=== PATIENT | male | born 1980 | race Caucasian/White ===

== ENCOUNTER 2020-07-22 10:19 | Emergency (ER) | payer OTHER, SELFPAY ==
[2020-07-22] VITALS (27 sets, daily range): BP systolic 115–165; BP diastolic 83–101; PULSE 59–79; RESP 11–18; TEMP 36.8; O2SAT 94–100
--- NOTE | ~2020-07-22 | CT_ITS ---
EXAMINATION: CT abdomen pelvis w con EXAM DATE: 07/22/2020 11:10 INDICATION: Epigastric pain. TECHNIQUE: Spiral CT of the abdomen and pelvis was performed following intravenous injection of 100 m L Omnipaque 350. Axial, coronal and sagittal images were reviewed. The dose-length product (DLP) fo r this examination was 672.72 mGy-cm. The exposure was tailored according to patient size (auto mA e xposure control), and iterative reconstruction (ASIR) was used as additional dose reduction technique . There is no prior study for comparison. FINDINGS: There is hepatic steatosis without suspicious focal lesion identified. Spleen, adrenal glan ds, pancreas are unremarkable. There are gallstones within an otherwise unremarkable gallbladder. N o evidence of obstructive biliary disease. Portal and splenic veins are patent. Kidneys enhance sym metrically. There is no hydronephrosis. The prostate is unremarkable. The bladder is unremarkable . There is no retroperitoneal or pelvic lymphadenopathy. There are surgical changes consistent with appendectomy. The stomach and small bowel are unremarkab le. There is expected amount of colonic stool. No free intraperitoneal gas. The heart is normal in size. There are no pericardial or pleural effusions. The lung bases are unremarkable. There are no osteoblastic or osteolytic lesions identified. IMPRESSION: 1. No acute intra-abdominal findings. 2. Hepatic steatosis. 3. Cholelithiasis. Reviewed, dictated and finalized at location B.
--- NOTE | ~2020-07-22 | XR_ITS ---
EXAMINATION: XR chest 2V EXAM DATE: 07/22/2020 11:15 INDICATION: Mid chest pain. Epigastric pain. TECHNIQUE: Frontal and lateral projections of the chest obtained and reviewed. There is no prior caitlyn dy for comparison. FINDINGS: The lungs are clear. There are no pleural effusions. The cardiomediastinal silhouette is within normal limits. There is no pneumothorax suspected. The bones and soft tissues are unremarkab le. IMPRESSION: No acute cardiopulmonary findings. Reviewed, dictated and finalized at location B.
--- NOTE | 2020-07-22 10:30 | ECG_ITS ---
Measurements Intervals [place] Rate: 68 P: 46 ND: 188 QRS: 6 QRSD: 92 T: 29 QT: 395 QTc: 422 Interpretive Statements SINUS RHYTHM CANNOT RULE OUT SEPTAL INFARCT, AGE INDETERMINATE ABNORMAL ECG Electronically Signed On 07-22-2020 20:12:45 CDT by Rajan Edgar D.O.
--- NOTE | 2020-07-22 10:30 | PC.NURSE ---
Dr. Davila at bedside for pt assessment.
--- NOTE | 2020-07-22 10:36 | ED.ABDPAIN ---
HPI - Abdominal Pain General Chief Complaint: Chest Pain Stated Complaint: chest pains Time Seen by Provider: 07/22/20 10:24 Source: patient Mode of arrival: ambulatory Limitations: no limitations History of Present Illness HPI narrative: Patient is a 39-year-old male complaining of epigastric pain described as burning 4 out of 10 nonradiating was 9 out of 10 prior to arrival. Patient states he has a history of heartburn and on pantoprazole for it. Patient denies any shortness of breath nausea vomiting or diaphoresis. Related Data Allergies Allergy/AdvReac Type Severity Reaction Status Date / Time acetaminophen AdvReac Unknown Nausea and Verified 07/22/20 10:34 Vomiting codeine AdvReac Unknown Nausea and Verified 07/22/20 10:34 Vomiting prednisone AdvReac Unknown Unknown Verified 07/22/20 10:34 Review of Systems Review of Systems: All systems reviewed & are unremarkable except as noted in HPI and below Constitutional: Constitutional: Denies body ache(s), Denies chills, Denies excessive sweating, Denies fatigue, Denies fever(s), Denies headache(s), Denies lethargy, Denies malaise, Denies weakness and Denies weight loss Eyes: Eyes: Denies blurry vision, Denies change in vision and Denies loss of vision ENT: Denies dizziness, Denies ear discharge, Denies headache(s), Denies lip swelling, Denies epistaxis, Denies nasal congestion, Denies neck pain, Denies throat swelling and Denies tongue swelling Cardiovascular: Cardiovascular: Denies chest pain, Denies chest pain at rest, Denies chest pain with activity, Denies diaphoresis, Denies rapid heart rate, Denies edema, Denies irregular heart rhythm, Denies lightheadedness, Denies palpitations, Denies dyspnea and Denies dyspnea on exertion Respiratory: Respiratory: Denies chest congestion, Denies cough, Denies hemoptysis, Denies dyspnea and Denies dyspnea on exertion Gastrointestinal: Gastrointestinal: Denies melena, Denies hematochezia, Denies diarrhea, Denies nausea, Denies vomiting and Denies hematemesis Musculoskeletal: Musculoskeletal: Denies abnormal gait, Denies deformity, Denies joint swelling, Denies limited range of motion, Denies neck pain and Denies numbness Neurologic: Denies Abnormal speech present, Denies abnormal gait, Denies confusion, Denies dizziness, Denies headache(s), Denies focal weakness, Denies loss of vision, Denies numbness, Denies Other visual disturbances, Denies Sensory deficit (Neuro) and Denies weakness Psychiatric: Psychiatric: Denies confusion, Denies depression, Denies auditory hallucinations, Denies homicidal ideation and Denies suicidal ideation Endocrine: Endocrine: Denies cold intolerance, Denies excessive sweating, Denies fatigue, Denies heat intolerance and Denies palpitations Hematologic/Lymphatic: Hematologic/Lymphatic: Denies easy bleeding and Denies easy bruising Allergic/Immunologic: Allergic/Immunologic: Denies lip swelling, Denies throat swelling and Denies tongue swelling PMFSH Family History Family History (Updated 11/18/17 @ 15:59 by DOCTOR UNKNOWN) Grandparent Hypertension Carcinoma of colon Mother Patient's mother is in good health Hypertension Family history of malignant neoplasm of ovary Father Patient's father is in good health Social History Social History Smoking status: Never smoker Alcohol intake: current Exam Const: General: cooperative, healthy appearing, comfortable, no acute distress, well developed, alert and awake; No confusion Orientation/consciousness: oriented to person, oriented to place, oriented to time, patient oriented x3 and No confusion Limitations: no limitations HENMT: Head: normal to inspection, normocephalic and atraumatic Ears: hearing grossly normal bilaterally, TM normal on the right and TM normal on the left General nose exam: Normal external nose present, Normal nares present and No nasal discharge present Face and sinus: normal facial exam Mouth: Yes Normal oral
[2020-07-22 10:45] LABS: Basophils Absolute Auto 0.1 K/mm3 (0.0-0.1); Basophils Percent Auto 0.8 % (0.2-1.2); Eosinophils Absolute Auto 0.1 K/mm3 (0-0.3); Eosinophils Percent Auto 1.6 % (0-4.4); Hematocrit 47.5 % (42.0-52.0); Hemoglobin 16.8 g/dL (14.0-18.0); Immature Granulocyte Absolute 0.03 K/mm3 (0.00-0.031); Immature Granulocyte Percent A 0.4 % (0-0.5); Lymphocytes Absolute Auto 2.53 K/mm3 (0.9-3.2); Lymphocytes Percent Auto 34.4 % (18.3-44.2); Mean Corpuscular HGB Conc 35.4 g/dl (32-36); Mean Corpuscular Hemoglobin 32.2 pg (26-34); Mean Platelet Volume 10.2 fl (7.4-10.4); Monocytes Absolute Auto 0.5 K/mm3 (0.1-0.6); Monocytes Percent Auto 6.3 % (2.6-8.5); Neutrophils Absolute Auto 4.2 K/mm3 (1.3-6.7); Neutrophils Percent Auto 56.5 % (45.5-73.1); Platelet Count Result 221 k/mm3 (150-375); Red Blood Count 5.22 M/mm3 (4.6-6.20); Red Cell Distribution Width 11.6 % (11.5-14.5); White Blood Count 7.4 K/mm3 (4.5-10.0)
[2020-07-22] MEDS: ASPIRIN 81 MG CHEWABLE TABLET 324 MG PO (10:52)
[2020-07-22] MEDS: FAMOTIDINE 20 MG TABLET 40 MG PO (10:53)
[2020-07-22] MEDS: BELLADONNA ALK/PHENOB ELIX 10 ML, MAG HYDROX/ALUMINUM HYD/SIMETH 30 ML, LIDOCAINE HCL 2... PO (10:54)
[2020-07-22 10:56] LABS: Partial Thromboplastin Time 27.4 SECONDS (22.3-36.8); Prothrombin Time 12.8 Seconds (11.1-14.7)
--- NOTE | 2020-07-22 10:56 | PC.NURSE ---
Pt to CT.
[2020-07-22 11:05] LABS: Estimated CRCL calculation 91 ml/min; Estimated Glomerular Filt Rate > 60
[2020-07-22] MEDS: SODIUM CHLORIDE 0.9% IV 1,000 ML 999 ML IV CONT (11:22)
[2020-07-22 11:51] LABS: Anion Gap 7 mmol/L (8-16); Blood Urea Nitrogen 10 mg/dL (9-20); Calcium 8.9 mg/dL (8.4-10.2); Carbon Dioxide 28 mmol/L (22-30); Chloride 100 mmol/L (98-107); Estimated CRCL calculation 100 ml/min; Estimated Glomerular Filt Rate > 60; Glucose 105 mg/dL (75-110); Lipase 34 U/L (23-300); Potassium 4.2 mmol/L (3.4-5.0); Sodium 135 mmol/L (137-145)
[2020-07-22 12:02] LABS: Troponin I < 0.012 ng/mL (0.000-0.034)
[2020-07-22 13:55] LABS: Troponin I < 0.012 ng/mL (0.000-0.034)
== END 2020-07-22 15:27 | disposition home or self-care (01) ==
PROVIDERS: Emergency Provider Emergency Medicine; PCP Internal Medicine
DX: K80.20 Calculus of gallbladder without cholecystitis without obstruction (principal); K76.0 Fatty (change of) liver, not elsewhere classified; R94.31 Abnormal electrocardiogram [ECG] [EKG]
CPT/HCPCS: 36415; 71046; 74177; 80048; 83690; 84484; 85025; 85610; 85730; 93005; 96360; 99284; A9270; J7030; Q9967

== ENCOUNTER 2020-10-07 07:30 | Outpatient (CLI) | payer OTHER, SELFPAY ==
--- NOTE | ~2020-10-07 | NM_ITS ---
EXAMINATION: NM hepatobiliary w pharm DATE: 10/07/2020 09:36 INDICATION: Cholelithiasis COMPARISON: None. TECHNIQUE: 5 mCi Tc-99m mebrofenin (Choletec) was administered intravenously. Scintigraphic images o f the abdomen were obtained for one hour. 2 mcg sincalide (Kinevac) was administered by slow intraven ous infusion, and imaging was continued for 30 minutes. Gallbladder ejection fraction was calculated by the technologist. FINDINGS: There is normal clearance of radiotracer from the blood pool. There is homogeneous tracer uptake by t he liver. Activity progresses to the gallbladder and bowel. The gallbladder ejection fraction (GBEF) is 25% (normal 10-90%, but most patient with gallbladder dysfunction have GBEF < 35% which does over lap with the normal range). IMPRESSION: 1. Gallbladder ejection fraction is at the lower range of normal. This could be normal but is also within the range of overlap with gallbladder dysfunction or chronic cholecystitis in the appropriate clinical setting. Reviewed, dictated and finalized at location A. LANCE DESIGNER
== END 2020-10-07 07:31 | disposition home or self-care (01) ==
LOC: ANHIMG 07:40
PROVIDERS: PCP Internal Medicine; Visit Provider Internal Medicine
DX: K80.20 Calculus of gallbladder without cholecystitis without obstruction (principal)
CPT/HCPCS: 78227; A9537; J2805

== ENCOUNTER 2020-10-25 13:31 | Outpatient (CLI) | payer OTHER, SELFPAY ==
[2020-10-25 13:44] LABS: Basophils Percent Auto 0.6 % (0.2-1.2); Eosinophils Absolute Auto 0.1 K/mm3 (0-0.3); Eosinophils Percent Auto 1.3 % (0-4.4); Hematocrit 48.2 % (42.0-52.0); Hemoglobin 16.8 g/dL (14.0-18.0); Immature Granulocyte Absolute 0.04 K/mm3 (0.00-0.031); Immature Granulocyte Percent A 0.6 % (0-0.5); Lymphocytes Absolute Auto 2.18 K/mm3 (0.9-3.2); Mean Corpuscular HGB Conc 34.9 g/dl (32-36); Mean Corpuscular Hemoglobin 31.1 pg (26-34); Mean Corpuscular Volume 89.3 fl (80-100); Mean Platelet Volume 9.4 fl (7.4-10.4); Monocytes Absolute Auto 0.4 K/mm3 (0.1-0.6); Monocytes Percent Auto 6.3 % (2.6-8.5); Neutrophils Absolute Auto 4.2 K/mm3 (1.3-6.7); Neutrophils Percent Auto 60.2 % (45.5-73.1); Platelet Count Result 230 k/mm3 (150-375); Red Cell Distribution Width 11.8 % (11.5-14.5)
[2020-10-25 14:01] LABS: Alanine Aminotransferase 91 U/L (4-50); Albumin Level 4.6 g/dL (3.5-5.1); Alkaline Phosphatase 64 U/L (38-126); Amylase 64 U/L (30-110); Anion Gap 9 mmol/L (8-16); Aspartate Amino Transferase 60 U/L (17-59); Bilirubin,Total 1.7 mg/dL (0.2-1.3); Blood Urea Nitrogen 16 mg/dL (9-20); Calcium 9.4 mg/dL (8.4-10.2); Carbon Dioxide 30 mmol/L (22-30); Chloride 100 mmol/L (98-107); Estimated Glomerular Filt Rate > 60; Glucose 108 mg/dL (75-110); Lipase 56 U/L (23-300); Sodium 139 mmol/L (137-145)
== END 2020-10-25 13:32 | disposition home or self-care (01) ==
LOC: ANHSURGERY 13:33
PROVIDERS: PCP Internal Medicine; Visit Provider Surgery
DX: Z01.818 Encounter for other preprocedural examination (principal); K80.10 Calculus of gallbladder with chronic cholecystitis without obstruction
CPT/HCPCS: 36415; 80053; 82150; 82248; 83690; 85025

== ENCOUNTER 2020-10-28 00:41 | Outpatient (CLI) | payer OTHER, SELFPAY ==
[2020-10-28 18:38] LABS: SARS-CoV-2 RNA PCR Negative
== END 2020-10-28 00:42 | disposition home or self-care (01) ==
LOC: ANHCOVIDDT 00:42
PROVIDERS: PCP Internal Medicine; Visit Provider Surgery
DX: Z01.818 Encounter for other preprocedural examination (principal); Z20.828 Contact with and (suspected) exposure to other viral communicable diseases
CPT/HCPCS: C9803; U0003

== ENCOUNTER 2020-10-31 01:13 | Day surgery (SDC) | payer OTHER, SELFPAY ==
[2020-10-24 14:24] VITALS: BMI 27.8
[2020-10-31] VITALS (7 sets, daily range): BP systolic 89–135; BP diastolic 70–90; PULSE 66–87; RESP 14–16; TEMP 36.3–36.7; O2SAT 94–100; BMI 28.3
--- NOTE | ~2020-10-31 | XR_ITS ---
EXAMINATION: XR cholangiogram surg 1st inj EXAM DATE: 10/31/2020 18:42 INDICATION: Intraoperative cholangiogram. TECHNIQUE: Multiples Cine fluoroscopic images were obtained during injection of the cystic duct duri ng laparoscopic cholecystectomy. Procedure performed by Dr. Miguel Angel Buchanan MD on 10/31/2020 18:4 2. The DAP for this procedure was 0.18 mGym2. Correlation was made with CT abdomen 07/22/2020. FINDINGS: The cystic duct has been injected. There are no intraluminal filling defects within or st rictures of the common bile duct or opacified hepatic ducts. Forward flow of contrast confirmed into the duodenum. IMPRESSION: Unremarkable biliary system. Reviewed, dictated and finalized at location A. Y LABORATORY TECHNICIAN
[2020-10-31] MEDS: ACETAMINOPHEN 500 MG TABLET 1000 MG PO (13:13)
[2020-10-31] MEDS: LACTATED RINGERS 1,000 ML 30 ML IV CONT ×2 (13:14→19:18)
[2020-10-31] MEDS: KETOROLAC 15 MG/ML VIAL (*BKC) IV PUSH (13:14)
--- NOTE | 2020-10-31 14:51 | SUR.PREOP ---
PT NOTIFIED OF APPROX 90 MIN DELAY. OFFERED RECLINER. PT STATES HE IS FINE ON STRETCHER.
--- NOTE | 2020-10-31 15:34 | SUR.PREOP ---
1530; PT MOVED TO [facility] WHILE WAITING FOR SURGERY. REPORT GIVEN TO HELEN EPPERSON RN.
--- NOTE | 2020-10-31 16:10 | SUR.PREOP ---
OR STAFF REPORTED THAT THIS PATIENT'S SURGERY IS DELAYED ABOUT 1-1.5 HOURS. PATIENT NOTIFIED AND DECIDED TO STAY FOR SURGERY TODAY. PATIENT CALLING HIS TO REPORT THE CHANGE.
--- NOTE | 2020-10-31 16:43 | WPDANESEPPF ---
Anes - Initial Pre Proc Eval Procedure: Operation Date: 10/31/20 14:30 Proposed Procedures p Laparoscopic Cholecystectomy with Intra Operative Cholangiograms, Possible Open - Miguel Angel Buchanan MD Date/Time: 10/31/20 16:43 Surgeon: Miguel Angel Buchanan MD Pre Op Diagnosis: chronic cholecystitis with cholelithiasis Patient Data Age: 40 Gender: M Height: 1.85 m Weight: 97.5 kg Last Vital Signs Temp 36.7 C 10/31/20 13:17 Pulse 85 10/31/20 13:17 Resp 16 10/31/20 13:17 BP 128/85 10/31/20 13:17 Pulse Ox 99 10/31/20 13:17 Allergies Allergy/AdvReac Type Severity Reaction Status Date / Time codeine AdvReac Unknown Nausea and Verified 10/31/20 12:58 Vomiting prednisone AdvReac Unknown Gastrointestinal Verified 10/31/20 12:58 Upset Home Medications Medication Instructions Recorded Confirmed Type omeprazole 20 mg capsule,delayed 20 mg PO DAILY #90 cap 07/27/20 10/31/20 Rx release ascorbic acid (vitamin C) 1 g PO DAILY 10/24/20 10/31/20 History Patient hx anesthesia problems: none Family hx anesthesia problems: none PMFSH Past Medical History Medical History (Updated 10/31/20 @ 16:45 by Shashank Smyth MD) Chronic cholecystitis with calculus OSVALDO (generalized anxiety disorder) GERD (gastroesophageal reflux disease) Grannis syndrome Mixed hypertriglyceridemia Overweight (BMI 25.0-29.9) Surgical History Surgical History H/O hand surgery index finger H/O knee surgery History of appendectomy Family History Family History Grandparent Hypertension Carcinoma of colon Mother Patient's mother is in good health Hypertension Family history of malignant neoplasm of ovary Father Patient's father is in good health Social History Social History Smoking status: Never smoker Alcohol intake: current Drinks per week: 5 Substance use: unknown Living arrangements: with family Additional occupation/education comments: [employer] Gender identity (if verbalized by the patient): Male Spiritual care concerns: No Anes - Eval Final PreProcedure Day of Procedure 10/31/20 16:43 Patient weight: overweight Heart: regular rate and rhythm Lungs: clear to auscultation and normal air movement Airway: Mallampati scale class II Neurological: alert and oriented Last oral intake: >/= 8 hours ASA classification: II Emergent: no Anesthetic plan: proceed Anesthesia type and monitoring: general ETT Informed Consent: The patient's anesthetic plan and its attendant risks and benefits were discussed with the patient/family/POA. Questions were solicited and answers provided to the satisfaction of the patient/family/POA.
--- NOTE | 2020-10-31 17:16 | WPDHPUPDATE1 ---
History and Physical Update Update Date/Time: 10/31/20 17:16 History and Physical has been reviewed, including an updated exam of the patient. There are NO changes in the patient's condition. Risks, benefits, and alternatives have been discussed and questions answered. Patient agrees to proceed with procedure.
[2020-10-31] MEDS: ceFAZolin 2 GM/D5W 50 ML 2 GM/50 ML BAG IVPB (17:32)
[2020-10-31] MEDS: BUPIVACAINE HCL 0.5% PF 30 ML VIAL INFILTRATE (18:19)
--- NOTE | 2020-10-31 19:10 | PM.PROC ---
Procedure Note - Detailed Date of procedure: 10/31/20 Pre-op diagnosis: chronic cholecystitis with cholelithiasis Post-op diagnosis: same Procedure performed: Laparoscopic cholecystectomy with intraoperative cholangiogram. Description of procedure: Procedure Details: Patient was seen preoperatively in the holding area and risks, benefits and alternatives confirmed. Patient was taken to the operating room and general anesthesia was induced. A time out was then preformed with the surgery team confirming patient and site of surgery. The abdomen was prepped and draped in the usual sterile fashion. Incision was made just below the umbilicus. Two stay sutures of O- Vicryl were used to elevate the mid-line fascia beneath the umbilicus and a small incision was made under direct vision. The peritoneum was entered. The 12 mm Palma cannula was introduced under direct vision. First under low flow and then under high flow the abdomen was insufflated with carbon dioxide never exceeding a pressure of 14. Three 5 mm trocars were then introduced under direct vision. The following trocars were introduced under direct vision: a 5 mm in the epigastrium and two 5 mm trocars along the right costal margin. The gall bladder was grasped and the cystic duct and artery were dissected free and clipped with an 5 mm endo-clip founder ceo & president. There were 3 somewhat tubular structures in the triangle of Calot one of which may have been a small anterior branch of the cystic artery or a large lymphatic branch next to the back of the cystic duct. Because of this I felt it was pearl to do a cholangiogram. The cholangiogram catheter was passed through a 14 gauge Angiocath which was brought through the anterior abdominal wall under direct vision with the laparoscoped between the 2 most lateral 5 mm port sites. A small hole was made in the cystic duct with endoshears and a cholagio-cath introduced. A cholangiogram was obtained revealing free flow into the cystic duct (which was at least 3 cm long beyond the site of catheterization), common bile duct, common hepatic, right and left hepatic ducts with free flow into the duodenum with no filling defects in the intra nor extrahepatic biliary tree and no dilation. It looked to me like the distal 3 cm of the common bile duct were fairly narrow but there was good flow into the duodenum. The catheter was removed and the cystic duct was clipped with a 5 mm endoclip-founder ceo & president. The cystic duct was then transected. The cystic artery was also transected at this point. The tubular structure just behind the cystic duct which may have been a large lymphatic will was also clipped in 2 places directly behind the site where we transected the cystic duct and also transected between those clips. The gall bladder was removed using electrocautery and then removed using a large 10 mm grasper via the umbilical incision. The trocars were removed visualizing hemostasis and the remaining gas evacuated. The large trocar site at the umbilicus was closed with an 0 vicryl figure of 8 suture. The 2 stay sutures mentioned above on either side of the fascia were also tied together to help approximate this midline fascia. Further local anesthetic was placed into each incision for postop pain control. The skin incisions were closed with a subcuticular of 4-0 Monocryl. Surgical glue then was applied to all the incisions. Patient tolerated the procedure well was taken to the recovery room in good condition. Implants: none Anesthesia: EUGENIA Surgeon: Miguel Angel Buchanan MD Process Design Chemical Engineer: AMANDEEP Antonio, OR 1st assist Drains: No Packing: No Pathology: yes (The gallbladder) Complications: No immediate complications Condition: stable Disposition: PACU Findings: There was a narrow cystic duct. Gallbladder was otherwise soft and appeared to be only chronically inflamed if inflamed all.
[2020-10-31] MEDS: oxyCODONE HCL (*CRX) 5 MG TAB IR PO (20:18)
== END 2020-10-31 20:59 | disposition home or self-care (01) ==
PROVIDERS: PCP Internal Medicine; Visit Provider Surgery
PROC: 0FT44ZZ Resection of Gallbladder, Percutaneous Endoscopic Approach (ICD-10-PCS; CPT 47562; principal; 2020-10-31 14:30)
DX: K81.1 Chronic cholecystitis (principal); K21.9 Gastro-esophageal reflux disease without esophagitis; E78.1 Pure hyperglyceridemia; F41.1 Generalized anxiety disorder; E80.4 Gilbert syndrome
CPT/HCPCS: 47563; 36415; 74300; 80053; 82150; 82248; 83690; 85025; 88304; A9270; C9803; J0690; J1100; J1885; J1940; J2250; J2370; J2405; J2704; J2710; J3010; J7120; Q9966; U0003

== ENCOUNTER 2020-11-09 11:51 | Outpatient (CLI) | payer OTHER, SELFPAY ==
[2020-11-09 13:08] LABS: Basophils Absolute Auto 0.1 K/mm3 (0.0-0.1); Basophils Percent Auto 0.9 % (0.2-1.2); Eosinophils Absolute Auto 0.1 K/mm3 (0-0.3); Eosinophils Percent Auto 1.5 % (0-4.4); Hematocrit 45.3 % (42.0-52.0); Immature Granulocyte Absolute 0.03 K/mm3 (0.00-0.031); Immature Granulocyte Percent A 0.4 % (0-0.5); Lymphocytes Absolute Auto 2.38 K/mm3 (0.9-3.2); Lymphocytes Percent Auto 34.8 % (18.3-44.2); Mean Corpuscular HGB Conc 35.3 g/dl (32-36); Mean Corpuscular Hemoglobin 31.4 pg (26-34); Mean Corpuscular Volume 88.8 fl (80-100); Mean Platelet Volume 9.8 fl (7.4-10.4); Monocytes Absolute Auto 0.4 K/mm3 (0.1-0.6); Monocytes Percent Auto 6.4 % (2.6-8.5); Neutrophils Absolute Auto 3.8 K/mm3 (1.3-6.7); Platelet Count Result 256 k/mm3 (150-375); Red Cell Distribution Width 11.4 % (11.5-14.5); White Blood Count 6.8 K/mm3 (4.5-10.0)
[2020-11-09 13:19] LABS: Alanine Aminotransferase 64 U/L (4-50); Albumin Level 4.5 g/dL (3.5-5.1); Alkaline Phosphatase 71 U/L (38-126); Anion Gap 10 mmol/L (8-16); Aspartate Amino Transferase 41 U/L (17-59); Bilirubin,Total 1.5 mg/dL (0.2-1.3); Blood Urea Nitrogen 19 mg/dL (9-20); Calcium 9.2 mg/dL (8.4-10.2); Carbon Dioxide 27 mmol/L (22-30); Chloride 103 mmol/L (98-107); Estimated Glomerular Filt Rate > 60; Glucose 108 mg/dL (75-110); Lipase 55 U/L (23-300); Sodium 140 mmol/L (137-145)
== END 2020-11-09 11:52 | disposition home or self-care (01) ==
LOC: ANHLAB 11:52
PROVIDERS: PCP Internal Medicine; Visit Provider Surgery
DX: R10.9 Unspecified abdominal pain (principal)
CPT/HCPCS: 36415; 80053; 83690; 85025